=== PATIENT | male | born 1995 | race Caucasian/White ===

== ENCOUNTER 2018-01-01 10:39 | Emergency (ER) | payer OTHER ==
[2018-01-01 10:46] VITALS: BP 109/83
[2018-01-01] MEDS ORDERED: LIDOCAINE PATCH 5% TOP STA (11:24)
--- NOTE | 2018-01-01 11:34 | ED Physician Documentation ---
History of Present Illness - Stated complaint Stated Complaint: BACK INJ - Chief complaint Chief Complaint: Back Pain - Additonal information Additional information: hx from pt healthy 22 male works at [employer] was lifting a heavy bucket, hoisted onto his knee, twisted to throw it over his shoulder and strained his right low back occurred a few days ago getting better - still not able to safely lift heavy items work needs a note to be off or limited no numbness weakness incont Review of Systems Constitutional: denies: Fever GI: denies: Abdominal Pain : denies: Incontinent Musculoskeletal: reports: Back pain Neurologic: denies: Focal weakness, Numbness PD PAST MEDICAL HISTORY - Past Medical History Endocrine/Autoimmune: None - Past Surgical History Past Surgical History: No - Present Medications Home Medications: Ambulatory Orders Medication Instructions Recorded Confirmed Ibuprofen [Motrin] 400 mg PO Q6H PRN #30 tablet 01/01/18 Lidocaine Patch 5% [Lidoderm Patch] 1 each TOP DAILY PRN #10 patch 01/01/18 - Allergies Allergies/Adverse Reactions: Allergies Allergy/AdvReac Type Severity Reaction Status Date / Time No Known Drug Allergies Allergy Verified 01/01/18 10:45 - Social History Does the pt smoke?: No Smoking Status: Never smoker Does the pt drink ETOH?: No Does the pt have substance abuse?: No - Immunizations Immunizations are current?: Yes - POLST Patient has POLST: No PD ED PE NORMAL - Vitals Vital signs reviewed: Yes - Cardiac Cardiac: RRR - Respiratory Respiratory: No respiratory distress, Clear bilaterally - Abdomen Abdomen: Soft, Non tender - Back Back: No spinal TTP, Other (right soft tissue TTP, limited ROM fernando flexion) - Derm Derm: Normal color - Extremities Extremities: Other (hip flexion knee ext foot dorsi plantar and great toe ext 5/ 5 no clonus, patellar DTR 3/4 erendira, neg SLR, denies saddle anesthesia) Results - Vitals Vitals: Vital Signs - 24 hr 01/01/18 10:43 Temperature 36.1 C L Heart Rate 53 L Respiratory 16 Rate Blood Pressure 109/83 H O2 Saturation 100 Oxygen O2 Source Room air Departure - Departure Disposition: 01 Home, Self Care Clinical Impression: Low back sprain Qualifiers: Encounter type: initial encounter Qualified Code(s): S33.9XXA - Sprain of unspecified parts of lumbar spine and pelvis, initial encounter Condition: Good Instructions: ED Sprain Strain Lumbar Prescriptions: Ibuprofen [Motrin] 400 mg PO Q6H PRN #30 tablet PRN Reason: Pain Lidocaine Patch 5% [Lidoderm Patch] 1 each TOP DAILY PRN #10 patch PRN Reason: Pain Forms: Activity restrictions
== END 2018-01-01 11:39 | disposition home or self-care (01) ==
LOC: ED 10:39
DX: S33.9XXA Sprain of unspecified parts of lumbar spine and pelvis, initial encounter (principal); X50.0XXA Overexertion from strenuous movement or load, initial encounter; Y93.89 Activity, other specified; Y92.79 Other farm location as the place of occurrence of the external cause; Y99.0 Civilian activity done for income or pay
CPT/HCPCS: 99283; A9270

== ENCOUNTER 2018-10-20 15:22 | Emergency (ER) | payer SELFPAY ==
[2018-10-20 15:31] VITALS: BP 147/88
--- NOTE | 2018-10-20 15:47 | ED Physician Documentation ---
PD HPI MALE - Stated complaint Stated Complaint: MALE - Chief complaint Chief Complaint: General - History obtained from History obtained from: Patient - History of Present Illness Timing - onset: How many days ago (2 days ago he had intercourse with persons with known HIV who is on antiviral meds with reportedly low viral load. It was unprotected intercourse and the patient penetrated the other person rectally. No reported bleeding and it was gentle intercourse, according to the patient. He is concerned however about the risk of HIV transmission. Does not feel risk of other STDs.) Timing - details: Abrupt onset Associated symptoms: No: Dysuria, Urinary frequency, Genital sore / lesion, Testiclar pain PD HPI MALE CONTRIB FACTORS: Sexually active, Homosexual, Exposed to STD (HIV) Similar symptoms before: Has not had sx before Review of Systems Constitutional: denies: Fever, Chills, Myalgias : denies: Dysuria, Frequency, Discharge PD PAST MEDICAL HISTORY - Past Medical History Endocrine/Autoimmune: None - Past Surgical History Past Surgical History: No - Present Medications Home Medications: Ambulatory Orders Medication Instructions Recorded Confirmed Azithromycin [Zithromax] 1 gm PO ONCE #1 packet 10/20/18 lamiVUDine/ZIDOVUDINE [Combivir] 1 each PO BID #56 tablet 10/20/18 - Allergies Allergies/Adverse Reactions: Allergies Allergy/AdvReac Type Severity Reaction Status Date / Time No Known Drug Allergies Allergy Verified 10/20/18 15:30 - Social History Does the pt smoke?: No Smoking Status: Never smoker Does the pt drink ETOH?: No Does the pt have substance abuse?: No - Immunizations Immunizations are current?: Yes - POLST Patient has POLST: No PD ED PE NORMAL - Vitals Vital signs reviewed: Yes - General General: Alert and oriented X 3, No acute distress, Well developed/nourished - HEENT HEENT: Pharynx benign - Neck Neck: No adenopathy - Male Male : Deferred Results - Vitals Vitals: Oxygen O2 Source Room air - Labs Labs: Laboratory Tests 10/20/18 16:15 HIV 1&2 Ag/Ab, 4th Gen NON-REACTIVE PD MEDICAL DECISION MAKING - ED course Complexity details: considered differential (low risk exposure but still of concern. Discussed with patient and shared decision to give antiviral meds. Also single dose ZIthromax for other STDs. ), d/w patient Departure - Departure Disposition: 01 Home, Self Care Clinical Impression: Exposure to HIV Condition: Stable Record reviewed to determine appropriate education?: Yes Prescriptions: Azithromycin [Zithromax] 1 gm PO ONCE #1 packet lamiVUDine/ZIDOVUDINE [Combivir] 1 each PO BID #56 tablet Comments: Use the azithromycin 1 g single dose for prevention of STDs. Use the Combivir antiviral for prevention of HIV infection due to the exposure. Recheck blood test for HIV in about a month to ensure you have not developed it. The current HIV test we did will result tomorrow. Discharge Date/Time: 10/20/18 16:41
[2018-10-21 12:51] LABS: HIV AG/AB 4TH GEN NON-REACTIVE (NON-REACTIVE)
== END 2018-10-20 16:41 | disposition home or self-care (01) ==
LOC: ED 15:22
DX: Z20.6 Contact with and (suspected) exposure to human immunodeficiency virus [HIV] (principal)
CPT/HCPCS: 36415; 87389; 99283

== ENCOUNTER 2019-06-20 20:21 | Emergency (ER) | payer OTHER ==
[2019-06-20 20:26] VITALS: BP 147/82
--- NOTE | 2019-06-20 20:29 | ED Physician Documentation ---
PD HPI MALE - Stated complaint Stated Complaint: MALE - Chief complaint Chief Complaint: Abd Pain - History obtained from History obtained from: Patient - History of Present Illness Timing - onset: How many weeks ago (2) Timing - duration: Weeks Timing - details: Gradual onset, Intermittant, Waxing and waning Recently seen: Not recently seen - Additional information Additional information: has had hemorrhoid for 2 weeks, gradually worsening in frequency and intensity of pain associated with the hemorrhoid. inadequate improvement with preparation H and wipes. Review of Systems Constitutional: reports: Reviewed and negative GI: reports: Reviewed and negative PD PAST MEDICAL HISTORY - Past Medical History Cardiovascular: None Respiratory: None Neuro: None Endocrine/Autoimmune: None GI: None : None HEENT: None Psych: None Musculoskeletal: None - Past Surgical History Past Surgical History: No - Present Medications Home Medications: Ambulatory Orders Medication Instructions Recorded Confirmed Azithromycin [Zithromax] 1 gm PO ONCE #1 packet 10/20/18 lamiVUDine/ZIDOVUDINE [Combivir] 1 each PO BID #56 tablet 10/20/18 Clindamycin HCl [Clindamycin 300MG 300 mg PO Q6H #19 capsule 06/20/19 CAP] Hydrocortisone/Pramoxine 1 applic RC TID #1 foam 06/20/19 [Proctofoam-Hc Foam] - Allergies Allergies/Adverse Reactions: Allergies Allergy/AdvReac Type Severity Reaction Status Date / Time No Known Drug Allergies Allergy Verified 06/20/19 20:26 - Social History Does the pt smoke?: No Smoking Status: Never smoker Does the pt drink ETOH?: No Does the pt have substance abuse?: No - Immunizations Immunizations are current?: Yes - POLST Patient has POLST: No PD ED PE NORMAL - Vitals Vital signs reviewed: Yes - General General: Alert and oriented X 3, No acute distress, Well developed/nourished PD ED PE EXPANDED - Rectal Rectal: Normal Tone, Leak Detector present, Other (No evidence of hemorrhoids; there is trace tenderness to palpation without swelling or erythema at anal verge). No: Fissure Results - Vitals Vitals: Oxygen O2 Source Room air PD MEDICAL DECISION MAKING - ED course Complexity details: considered differential, d/w patient ED course: no visible hemorrhoid at this time; might have hemorrhoid that has reduced spontaneously or an internal hemorrhoid that was prolapsed and similarly reduced without manual manipulation. no evidence of fissure nor abscess, but will give short course of antibiotic due to mild TTP at anal verge. Departure - Departure Disposition: 01 Home, Self Care Clinical Impression: Acute hemorrhoid Condition: Good Instructions: ED Hemorrhoids Follow-Up: Nayely Albarado ARNP, [facility] [Primary Care Provider] - Prescriptions: Clindamycin HCl [Clindamycin 300MG CAP] 300 mg PO Q6H #19 capsule Hydrocortisone/Pramoxine [Proctofoam-Hc Foam] 1 applic RC TID #1 foam Discharge Date/Time: 06/20/19 21:00
[2019-06-20] MEDS ORDERED: CLINDAMYCIN 150 MG CAPSULE PO STA (20:51)
[2019-06-20] MEDS ORDERED: IBUPROFEN 600 MG TABLET PO STA (20:51)
== END 2019-06-20 21:00 | disposition home or self-care (01) ==
LOC: ED 20:21
DX: K64.9 Unspecified hemorrhoids (principal)
CPT/HCPCS: 99282; 99283; A9270

== ENCOUNTER 2019-06-30 17:34 | Outpatient (CLI) | payer OTHER ==
[2019-07-01 15:28] LABS: HIV AG/AB 4TH GEN NON-REACTIVE (NON-REACTIVE)
== END 2019-06-30 17:35 | disposition home or self-care (01) ==
LOC: LAB 17:34
PROVIDERS: ATTEND Nurse Practitioner
DX: Z72.52 High risk homosexual behavior (principal)
CPT/HCPCS: 36415; 87389

== ENCOUNTER 2020-05-12 08:00 | Outpatient (CLI) | payer OTHER ==
[2020-05-12 21:29] LABS: TRICHOMONAS VAGINALIS DNA NEGATIVE (NEGATIVE)
== END 2020-05-12 23:59 | disposition home or self-care (01) ==
LOC: LAB.R 08:00
PROVIDERS: ATTEND Nurse Practitioner
DX: Z72.51 High risk heterosexual behavior (principal)
CPT/HCPCS: 87491; 87591; 87661

== ENCOUNTER 2020-09-12 17:38 | Emergency (ER) | payer OTHER ==
[2020-09-12] MEDS ORDERED: BUFFERED LIDOCAINE 10 ML SYRINGE SUBQ STA (17:47)
--- NOTE | 2020-09-12 17:48 | ED Physician Documentation ---
PD HPI WOUND RECHECK - Stated complaint Stated Complaint: MALE - Histroy obtained from History obtained from: Patient (Otherwise healthy 24-year-old gentleman complains of rectal pain for the last 5 days. No discharge. Feels like a prior hemorrhoid he had but worse. No trouble with bowel movements.) Review of Systems Constitutional: reports: Reviewed and negative Eyes: reports: Reviewed and negative Ears: reports: Reviewed and negative PD PAST MEDICAL HISTORY - Past Medical History Cardiovascular: None Respiratory: None Neuro: None Endocrine/Autoimmune: None GI: None : None HEENT: None Psych: None Musculoskeletal: None - Past Surgical History Past Surgical History: No - Present Medications Home Medications: Ambulatory Orders Medication Instructions Recorded Confirmed Amox/Clav 875/125 [Augmentin] 1 each PO Q12H #14 tablet 09/12/20 Dextroamphetamine/Amphetamine 25 mg PO DAILY 09/12/20 09/12/20 [Adderall Xr 25 mg Capsule] Venlafaxine HCl [Venlafaxine HCl 150 mg PO DAILY 09/12/20 09/12/20 ER] - Allergies Allergies/Adverse Reactions: Allergies Allergy/AdvReac Type Severity Reaction Status Date / Time sertraline [From Zoloft] Allergy Rash Verified 07/07/20 09:06 - Social History Does the pt smoke?: No Smoking Status: Never smoker Does the pt drink ETOH?: No Does the pt have substance abuse?: No - Immunizations Immunizations are current?: Yes - POLST Patient has POLST: No PD ED PE NORMAL - Vitals Vital signs reviewed: Yes - General General: Alert and oriented X 3, No acute distress - Rectal Rectal: Other (Small right sided perianal abscess about 2 cm to the right and inferior of the anal verge) - Neuro Neuro: Alert and oriented X 3, Normal speech Results - Vitals Vitals: Vital Signs - 24 hr 09/12/20 17:40 Temperature 37 C Heart Rate 103 H Respiratory 18 Rate Blood Pressure 134/97 H O2 Saturation 97 Oxygen O2 Source Room air Procedures - Abscess I&D (location) Perianal Preparation: Betadine, Lidocaine 1% Incision: Incised with scalpel, Purulent drainage Other: Pt tolerated well, Dressing applied, Antibiotic prescribed Departure - Departure Disposition: 01 Home, Self Care Clinical Impression: Perianal abscess Condition: Good Record reviewed to determine appropriate education?: Yes Instructions: Perianal Abscess Prescriptions: Amox/Clav 875/125 [Augmentin] 1 each PO Q12H #14 tablet Comments: Follow-up with your doctor in 2 days as scheduled for wound check. Return for new or worsening symptoms.
[2020-09-12 17:54] VITALS: BP 134/97
[2020-09-12] MEDS ORDERED: AMOX/CLAV 875 MG/125 MG TABLET PO STA (18:00)
[2020-09-12] MEDS ORDERED: HYDROcod/ACET 5/325 Prepack 4 PO STA (18:00)
== END 2020-09-12 18:10 | disposition home or self-care (01) ==
LOC: ED 17:38
DX: K61.0 Anal abscess (principal)
CPT/HCPCS: 46050; 99282; 99283; A9270

== ENCOUNTER 2020-12-15 11:45 | Emergency (ER) | payer SELFPAY ==
[2020-12-15 12:41] LABS: BILIRUBIN,URINE NEGATIVE (NEGATIVE); GLUCOSE, URINE (UA) NEGATIVE (NEGATIVE); KETONES,URINE (UA) NEGATIVE (NEGATIVE); LEUKOCYTE ESTERASE, URINE NEGATIVE (NEGATIVE); MUDS CUTOFF CONCENTRATIONS CUTOFF CONC BELOW:; NITRITE,URINE NEGATIVE (NEGATIVE); OCCULT BLOOD,URINE NEGATIVE (NEGATIVE); PROTEIN,URINE NEGATIVE (NEGATIVE); UROBILINOGEN,URINE 0.2 (NORMAL) E.U./dL (NORMAL)
[2020-12-15 12:42] LABS: CLARITY,URINE CLEAR (CLEAR)
[2020-12-15] MEDS ORDERED: TETANUS/DIPHTHERIA/PERTUSSIS 0.5 ML SYRINGE IM ONE (12:43)
--- NOTE | 2020-12-15 12:43 | ED Physician Documentation ---
PD HPI MHE - Stated complaint Stated Complaint: SI - Chief complaint Chief Complaint: MHE - History obtained from History obtained from: Patient - Additional information Additional information: 25-year-old gentleman with history of depression. Has been on meds in the past but is not currently. He has suicidal ideation and today started cutting his right thigh, and was worried that he might go too far. He is actively suicidal and that is his plan. No general health issues. Review of Systems Ten Systems: 10 systems reviewed and negative Constitutional: reports: Reviewed and negative Cardiac: reports: Reviewed and negative Respiratory: reports: Reviewed and negative PD PAST MEDICAL HISTORY - Past Medical History Cardiovascular: None Respiratory: None Neuro: None Endocrine/Autoimmune: None GI: None : None HEENT: None Psych: None Musculoskeletal: None - Past Surgical History Past Surgical History: No - Present Medications Home Medications: Ambulatory Orders Medication Instructions Recorded Confirmed No Known Home Medications 12/15/20 12/15/20 - Allergies Allergies/Adverse Reactions: Allergies Allergy/AdvReac Type Severity Reaction Status Date / Time sertraline [From Zoloft] Allergy Rash Verified 12/15/20 11:53 - Social History Does the pt smoke?: No Smoking Status: Never smoker Does the pt drink ETOH?: No Does the pt have substance abuse?: No - Immunizations Immunizations are current?: Yes - POLST Patient has POLST: No PD ED PE NORMAL - Vitals Vital signs reviewed: Yes - General General: Alert and oriented X 3, No acute distress - HEENT HEENT: PERRL, EOMI - Neck Neck: Supple, no meningeal sign, No bony TTP - Cardiac Cardiac: RRR, No murmur - Respiratory Respiratory: No respiratory distress, Clear bilaterally - Abdomen Abdomen: Normal bowel sounds, Soft, Non tender - Back Back: No CVA TTP, No spinal TTP - Derm Derm: Normal color, Warm and dry - Extremities Extremities: Other (Multiple linear shallow abrasions on the anterior right thigh from cutting himself. Note that tetanus is not up-to-date.) - Neuro Neuro: Alert and oriented X 3, Normal speech - Psych Psych: Normal mood, Normal affect Results - Vitals Vitals: Vital Signs - 24 hr 12/15/20 11:53 Temperature 37.2 C Heart Rate 74 Respiratory 19 Rate Blood Pressure 157/95 H O2 Saturation 100 Oxygen O2 Source Room air - Labs Labs: Laboratory Tests 12/15/20 12/15/20 12/15/20 11:59 12:40 12:40 WBC 8.0 RBC 5.37 Hgb 16.8 Hct 47.5 MCV 88.5 MCH 31.3 H MCHC 35.4 RDW 11.8 L Plt Count 276 MPV 9.8 Neut # (Auto) 4.8 Lymph # (Auto) 2.6 Barren # (Auto) 0.5 Eos # (Auto) 0.0 Baso # (Auto) 0.1 Absolute Nucleated RBC 0.00 Nucleated RBC % 0.0 Sodium 142 Potassium 3.7 Chloride 102 Carbon Dioxide 27 Anion Gap 13.0 BUN 10 Creatinine 1.0 Estimated GFR (MDRD) 90 Glucose 82 Calcium 10.0 Total Bilirubin 1.3 H AST 22 ALT 25 Alkaline Phosphatase 39 L Total Protein 8.3 H Albumin 4.8 Globulin 3.5 Albumin/Globulin Ratio 1.4 Lipase 28 TSH Urine Color YELLOW Urine Clarity CLEAR Urine pH 7.0 Ur Specific [place] 1.010 Urine Protein NEGATIVE Urine Glucose (UA) NEGATIVE Urine Ketones NEGATIVE Urine Occult Blood NEGATIVE Urine Nitrite NEGATIVE Urine Bilirubin NEGATIVE Urine Urobilinogen 0.2 (NORMAL) Ur Leukocyte Esterase NEGATIVE Ur Microscopic Review NOT INDICATED Urine Culture Comments NOT INDICATED Nasal Adenovirus (PCR) Nasal B. parapertussis DNA (PCR) Nasal Coronavir 229E PCR Nasal Coronavir HKU1 PCR Nasal Coronavir NL63 PCR Nasal Coronavir OC43 PCR Nasal Enterovir/Rhinovir PCR Nasal Influenza B PCR Nasal Influenza A PCR Nasal Parainfluen 1 PCR Nasal Parainfluen 2 PCR Nasal Parainfluen 3 PCR Nasal Parainfluen 4 PCR Nasal RSV (PCR) Nasal B.pertussis DNA PCR Nasal C.pneumoniae (PCR) [place] Human Metapneumo PCR Nasal M.pneumoniae (PCR) Nasal SARS-CoV-2 (PCR) Salicylates < 6.0 Urine Opiates Screen NEGATIVE Ur Oxycodone Screen NEGATIVE Urine Methadone Screen NEGATIVE Ur Propoxyphene Screen NEGATIVE Acetaminophen < 10 L Ur Barbiturates Screen NEGATIVE Ur Tricyclics Screen NEGATIVE Ur Phencyclidine Scrn NEGATIVE Ur Amphetamine Screen NEGATIVE U Methamphetamines Scrn NEGATIVE U Benzodiazepines Scrn NEGATIVE Urine Cocaine Screen NEGATIVE U Cannabinoids Screen POSITIVE H Ethyl Alcohol < 5.0 12/15/20 12/15/20 12:40 12:47 WBC RBC Hgb Hct MCV MCH MCHC RDW Plt Count MPV Neut # (Auto) Lymph # (Auto) Barren # (Auto) Eos # (Auto) Baso # (Auto) Absolute Nucleated RBC Nucleated RBC % Sodium Potassium Chloride Carbon Dioxide Anion Gap BUN Creatinine Estimated GFR (MDRD) Glucose Calcium Total Bilirubin AST ALT Alkaline Phosphatase Total Protein Albumin Globulin Albumin/Globulin Ratio Lipase TSH 0.78 Urine Color Urine Clarity Urine pH Ur Specific [place] Urine Protein Urine Glucose (UA) Urine Ketones Urine Occult Blood Urine Nitrite Urine Bilirubin Urine Urobilinogen Ur Leukocyte Esterase Ur Microscopic Review Urine Culture Comments Nasal Adenovirus (PCR) NOT DETECTED Nasal B. parapertussis DNA (PCR) NOT DETECTED Nasal Coronavir 229E PCR NOT DETECTED Nasal Coronavir HKU1 PCR NOT DETECTED Nasal Coronavir NL63 PCR NOT DETECTED Nasal Coronavir OC43 PCR NOT DETECTED Nasal Enterovir/Rhinovir PCR NOT DETECTED Nasal Influenza B PCR NOT DETECTED Nasal Influenza A PCR NOT DETECTED Nasal Parainfluen 1 PCR NOT DETECTED Nasal Parainfluen 2 PCR NOT DETECTED Nasal Parainfluen 3 PCR NOT DETECTED Nasal Parainfluen 4 PCR NOT DETECTED Nasal RSV (PCR) NOT DETECTED Nasal B.pertussis DNA PCR NOT DETECTED Nasal C.pneumoniae (PCR) NOT DETECTED [place] Human Metapneumo PCR NOT DETECTED Nasal M.pneumoniae (PCR) NOT DETECTED Nasal SARS-CoV-2 (PCR) NOT DETECTED Salicylates Urine Opiates Screen Ur Oxycodone Screen Urine Methadone Screen Ur Propoxyphene Screen Acetaminophen Ur Barbiturates Screen Ur Tricyclics Screen Ur Phencyclidine Scrn Ur Amphetamine Screen U Methamphetamines Scrn U Benzodiazepines Scrn Urine Cocaine Screen U Cannabinoids Screen Ethyl Alcohol PD MEDICAL DECISION MAKING - ED course ED course: 25 year-old gentleman presents for voluntary psychiatric stabilization. No contraindication to medical clearance and was seen by social media analyst and a bed was arranged at [facility] under the care of John Bentley NP. He is stable for transport and cobras were completed. Departure - Departure Disposition: 65 Psych Hosp/Unit DC/Xfer Clinical Impression: Depression Qualifiers: Depression Type: major depressive disorder Major depression recurrence: recurrent Active/Remission status: currently active Major depression episode severity: severe Psychotic features: without psychotic features Qualified Co de(s): F33.2 - Major depressive disorder, recurrent severe without psychotic features
[2020-12-15 12:45] LABS: BASOPHILS # (AUTO) 0.1 10^3/uL (0.0-0.1); BASOPHILS % (AUTO) 0.6 %; EOSINOPHILS % (AUTO) 0.5 %; HGB - HEMOGLOBIN 16.8 g/dL (14.0-18.0); LYMPHOCYTES # (AUTO) 2.6 10^3/uL (1.5-3.5); LYMPHOCYTES % (AUTO) 31.8 %; MEAN CORPUSCULAR HEMOGLOBIN 31.3 pg (27.0-31.0); MEAN CORPUSCULAR HGB CONC 35.4 g/dL (32.0-36.0); MEAN CORPUSCULAR VOLUME 88.5 fL (80.0-94.0); MEAN PLATELET VOLUME 9.8 fL (7.4-11.4); MONOCYTES # (AUTO) 0.5 10^3/uL (0.0-1.0); MONOCYTES % (AUTO) 6.6 %; NEUTROPHILS # (AUTO) 4.8 10^3/uL (1.5-6.6); NEUTROPHILS % (AUTO) 60.4 %; PLT - PLATELET COUNT 276 10^3/uL (130-450); RED BLOOD COUNT 5.37 10^6/uL (4.70-6.10); RED CELL DISTRIBUTION WIDTH 11.8 % (12.0-15.0)
[2020-12-15 13:02] LABS: AMPHETAMINE SCREEN,URINE NEGATIVE (NEGATIVE); BENZODIAZEPINES SCREEN, URINE NEGATIVE (NEGATIVE); COCAINE SCREEN URINE NEGATIVE (NEGATIVE); METHADONE SCREEN, URINE NEGATIVE (NEGATIVE); METHAMPHETAMINES SCREEN, URINE NEGATIVE (NEGATIVE); OPIATE SCREEN, URINE NEGATIVE (NEGATIVE); OXYCODONE SCREEN, URINE NEGATIVE (NEGATIVE); PROPOXYPHENE SCREEN, URINE NEGATIVE (NEGATIVE); TRICYCLIC ANTIDEPRESSANT,URINE NEGATIVE (NEGATIVE)
[2020-12-15 13:03] LABS: ACETAMINOPHEN < 10 ug/mL (10-30); ALBUMIN 4.8 g/dL (3.2-5.5); ALBUMIN/GLOBULIN RATIO 1.4 (1.0-2.2); ALKALINE PHOSPHATASE 39 IU/L (42-121); ALT ALANINE AMINOTRANSFERASE 25 IU/L (10-60); AST ASPARTATE AMINOTRANSFERASE 22 IU/L (10-42); BILIRUBIN,TOTAL 1.3 mg/dL (0.2-1.0); BUN - BLOOD UREA NITROGEN 10 mg/dL (6-20); CARBON DIOXIDE - CO2 27 mmol/L (21-32); CHLORIDE 102 mmol/L (101-111); GLUCOSE 82 mg/dL (70-100); LIPASE 28 U/L (22-51); SALICYLATE < 6.0 mg/dL; TOTAL PROTEIN 8.3 g/dL (6.7-8.2)
[2020-12-15 13:49] LABS: C. PNEUMONIAE- RESP PCR PANEL NOT DETECTED
[2020-12-15 18:34] VITALS: BP 142/86
== END 2020-12-15 18:35 ==
LOC: ED 11:45
DX: T14.91XA Suicide attempt, initial encounter (principal); X78.9XXA Intentional self-harm by unspecified sharp object, initial encounter; F33.2 Major depressive disorder, recurrent severe without psychotic features; Z23 Encounter for immunization; Z20.822 Contact with and (suspected) exposure to COVID-19
CPT/HCPCS: 0202U; 36415; 80320; 80329; 81003; 83690; 90471; 90715; 99283; 99285; 80053; 80306; 80307; 81001; 84443; 85025; 87086

== ENCOUNTER 2021-04-05 10:40 | Emergency (ER) | payer OTHER, MEDICAID ==
--- NOTE | 2021-04-05 11:24 | ED Physician Documentation ---
PD HPI ABD PAIN - Stated complaint Stated Complaint: ABD PX - Chief complaint Chief Complaint: Abd Pain - History obtained from History obtained from: Patient - Additional information Additional information: Healthy 25-year-old gentleman has had 2 days of lower abdominal pain. Thought it was related to lifting at work but has mild pain even when at rest but definitely gets worse with lifting or motion. Mild constipation. No nausea or fevers. No history of abdominal surgeries. Review of Systems Ten Systems: 10 systems reviewed and negative Constitutional: denies: Fever, Chills Cardiac: reports: Reviewed and negative Respiratory: reports: Reviewed and negative PD PAST MEDICAL HISTORY - Past Medical History Past Medical History: Yes Cardiovascular: None Respiratory: None Neuro: None Endocrine/Autoimmune: None GI: None : None HEENT: None Psych: None Musculoskeletal: None - Past Surgical History Past Surgical History: No - Present Medications Home Medications: Ambulatory Orders Medication Instructions Recorded Confirmed No Known Home Medications 12/15/20 12/15/20 - Allergies Allergies/Adverse Reactions: Allergies Allergy/AdvReac Type Severity Reaction Status Date / Time sertraline [From Zoloft] Allergy Rash Verified 04/05/21 10:51 - Social History Does the pt smoke?: No Smoking Status: Never smoker Does the pt drink ETOH?: No Does the pt have substance abuse?: No - Immunizations Immunizations are current?: Yes - POLST Patient has POLST: No PD ED PE NORMAL - Vitals Vital signs reviewed: Yes - General General: Alert and oriented X 3, No acute distress - HEENT HEENT: PERRL, EOMI - Neck Neck: Supple, no meningeal sign, No bony TTP - Cardiac Cardiac: RRR, No murmur - Respiratory Respiratory: No respiratory distress, Clear bilaterally - Abdomen Abdomen: Other (Focal tenderness in the right lower quadrant which I would call mild, no surgical signs, negative Rovsing's.) - Back Back: No CVA TTP, No spinal TTP - Derm Derm: Normal color, Warm and dry - Extremities Extremities: No edema, No calf tenderness / cord - Neuro Neuro: Alert and oriented X 3, Normal speech Results - Vitals Vitals: Vital Signs - 24 hr 04/05/21 04/05/21 10:47 12:58 Temperature 36.5 C 36.5 C Heart Rate 88 86 Respiratory 14 14 Rate Blood Pressure 145/94 H 138/88 H O2 Saturation 100 100 Oxygen O2 Source Room air - Labs Labs: Laboratory Tests 04/05/21 04/05/21 11:27 11:27 WBC 6.4 RBC 5.52 Hgb 17.4 Hct 50.0 MCV 90.6 MCH 31.5 H MCHC 34.8 RDW 11.4 L Plt Count 236 MPV 10.2 Neut # (Auto) 4.2 Lymph # (Auto) 1.8 [place] # (Auto) 0.3 Eos # (Auto) 0.1 Baso # (Auto) 0.1 Absolute Nucleated RBC 0.00 Nucleated RBC % 0.0 Sodium 137 Potassium 3.9 Chloride 99 L Carbon Dioxide 29 Anion Gap 9.0 BUN 7 Creatinine 1.0 Estimated GFR (MDRD) 90 Glucose 89 Calcium 9.8 PD MEDICAL DECISION MAKING - ED course ED course: 25-year-old gentleman presents with what sounds like musculoskeletal abdominal pain, but does have mild focal tenderness in the right lower quadrant therefore work-up was done without pertinent positive findings except for an incidental appendicolith which was discussed with patient. No evidence of appendicitis. Departure - Departure Disposition: 01 Home, Self Care Clinical Impression: Appendicolith Abdominal pain Qualifiers: Abdominal location: right lower quadrant Qualified Code(s): R10.31 - Right lower quadrant pain Condition: Good Record reviewed to determine appropriate education?: Yes Instructions: ED Abdominal Pain Appendx Poss Comments: As discussed, no evidence of serious etiologies, that said you do have what is called an appendicolith which makes the potential for having appendicitis in your lifetime much higher. Return for new or worsening symptoms or if not better in the next day. Forms: Activity restrictions Discharge Date/Time: 04/05/21 12:58
[2021-04-05 11:33] LABS: BASOPHILS # (AUTO) 0.1 10^3/uL (0.0-0.1); BASOPHILS % (AUTO) 1.1 %; EOSINOPHILS # (AUTO) 0.1 10^3/uL (0.0-0.7); EOSINOPHILS % (AUTO) 1.1 %; HGB - HEMOGLOBIN 17.4 g/dL (14.0-18.0); LYMPHOCYTES # (AUTO) 1.8 10^3/uL (1.5-3.5); LYMPHOCYTES % (AUTO) 27.7 %; MEAN CORPUSCULAR HEMOGLOBIN 31.5 pg (27.0-31.0); MEAN CORPUSCULAR HGB CONC 34.8 g/dL (32.0-36.0); MEAN CORPUSCULAR VOLUME 90.6 fL (80.0-94.0); MEAN PLATELET VOLUME 10.2 fL (7.4-11.4); MONOCYTES # (AUTO) 0.3 10^3/uL (0.0-1.0); MONOCYTES % (AUTO) 4.8 %; NEUTROPHILS # (AUTO) 4.2 10^3/uL (1.5-6.6); NEUTROPHILS % (AUTO) 65.1 %; PLT - PLATELET COUNT 236 10^3/uL (130-450); RED BLOOD COUNT 5.52 10^6/uL (4.70-6.10); RED CELL DISTRIBUTION WIDTH 11.4 % (12.0-15.0); WHITE BLOOD COUNT 6.4 x10^3/uL (4.8-10.8)
[2021-04-05 11:58] LABS: CALCIUM 9.8 mg/dL (8.5-10.3); POTASSIUM 3.9 mmol/L (3.5-5.0)
[2021-04-05] MEDS ORDERED: IOVERSOL 320 100 ML VIAL IVP ONE ×2 (12:02→14:38)
--- NOTE | 2021-04-05 12:37 | CT Report ---
PROCEDURE: Abdomen/Pelvis W INDICATIONS: Right lower quadrant abdominal pain CONTRAST: IV CONTRAST: Optiray 320 ml: 100 PO CONTRAST: *NO PO CONTRAST TECHNIQUE: After the administration of intravenous contrast, 5 mm thick sections acquired from the diaphragms to the symphysis. 5 mm thick coronal and sagittal reformats were acquired. For radiation dose reducti on, the following was used: automated exposure control, adjustment of mA and/or kV according to pat ent size. COMPARISON: 10/30/2013 CT abdomen and pelvis FINDINGS: Image quality: Excellent. ABDOMEN: Lung bases: Lung bases are clear. Heart size is normal. Solid organs: Liver and spleen are normal in size and enhancement. Gallbladder is normal. Biliary system is non dilated. Pancreas enhances normally. No adrenal nodules. Kidneys demonstrate normal size and enhancement, without hydronephrosis. Peritoneum and bowel: Normal caliber appendix without wall thickening or adjacent fat stranding. Ther e is a hyperdense appendicolith at the base of the appendix (series 3 image 42). Remainder of the bow el is unremarkable. No pericolonic or mesenteric inflammatory changes. Nodes and vessels: No retroperitoneal or mesenteric adenopathy by size criteria. Aorta and inferior vena cava are normal in size. Miscellaneous: No ventral hernias. PELVIS: Genitourinary: Bladder wall thickness is normal. Miscellaneous: No inguinal hernias or adenopathy. Bones: No suspicious bony lesions. No vertebral body compression fractures. IMPRESSION: No acute finding to explain abdominal pain. Appendicolith without findings of appendicitis. Reviewed by: Junito Tapia MD on 04/05/2021 12:36 PM PDT Approved by: Junito Tapia MD on 04/05/2021 12:36 PM PDT Station ID: [id number]
[2021-04-05 12:59] VITALS: BP 138/88
== END 2021-04-05 12:58 | disposition home or self-care (01) ==
LOC: ED 10:40
DX: K38.1 Appendicular concretions (principal); R10.30 Lower abdominal pain, unspecified; X50.0XXA Overexertion from strenuous movement or load, initial encounter; Y99.0 Civilian activity done for income or pay
CPT/HCPCS: 1040M; 36415; 74177; 80048; 85025; 99282; 99284; Q9967

== ENCOUNTER 2021-04-09 04:13 | Emergency (ER) | payer MEDICAID ==
[2021-04-09] MEDS ORDERED: DEXAMETHASONE 10 MG/ML VIAL PO STA (05:12)
[2021-04-09] MEDS ORDERED: CHERRY SYRUP 10 ML UDC PO ONE (05:12)
[2021-04-09] MEDS ORDERED: KETOROLAC 60 MG/2 ML VIAL IM STA (05:12)
--- NOTE | 2021-04-09 05:18 | ED Physician Documentation ---
PD HPI CHEST PAIN - Stated complaint Stated Complaint: ABD PX - Chief complaint Chief Complaint: Abd Pain - History obtained from History obtained from: Patient - History of Present Illness Timing - onset: How many days ago (6) Timing - onset during: Exertion Timing - duration: Days (6) Timing - details: Gradual onset, Still present Quality: Sharp, Pain Location: Right chest Radiation: Abdominal Improved by: Rest Worsened by: Inspiration, Palpation Associated symptoms: No: Shortness of air, Diaphoresis, Nausea, Vomiting, Feeling faint / dizzy, General Weakness, Palpitations, Cough Similar symptoms before: Has not had sx before Recently seen: Emergency Dept - Additional information Additional information: 25-year-old male indicates that he has had some pain in his right side for the past 6 days and indicates that tonight he was not able to sleep secondary to this pain. He has periodic increase in pain and he describes the pain is in the chest wall and the lower aspect of the chest on the right side. There is one specific area that is tender. He denies any nausea vomiting diarrhea or constipation. He denies any loss of appetite. He denies any fever. He was seen in the emergency department [address] scan of the abdomen and pelvis done had blood work done all with unremarkable findings with the exception of an appendicolith. Because of this the patient is come back with persistence of his symptoms. Patient works at [employer] and states that he has been doing quite a bit of working and that the lines have become heavier as the season goes on. He feels it would be easy for him to strain himself. Review of Systems Constitutional: denies: Fever Eyes: denies: Decreased vision Ears: denies: Ear pain Nose: denies: Congestion Throat: denies: Sore throat Cardiac: reports: Chest pain / pressure. denies: Palpitations, Pedal edema Respiratory: denies: Dyspnea, Cough, Hemoptysis GI: reports: Abdominal Pain. denies: Abdominal Swelling, Nausea, Vomiting : denies: Dysuria, Frequency Skin: denies: Rash Musculoskeletal: denies: Neck pain, Back pain, Extremity pain PD PAST MEDICAL HISTORY - Past Medical History Past Medical History: Yes Cardiovascular: None Respiratory: None Neuro: None Endocrine/Autoimmune: None GI: None : None HEENT: None Psych: Depression, Anxiety Musculoskeletal: None - Past Surgical History Past Surgical History: No - Present Medications Home Medications: Ambulatory Orders Medication Instructions Recorded Confirmed Venlafaxine HCl [Effexor Xr] 150 mg PO DAILY 04/09/21 04/09/21 traMADol [Ultram] 50 - 100 mg PO Q6H PRN #20 tablet 04/09/21 - Allergies Allergies/Adverse Reactions: Allergies Allergy/AdvReac Type Severity Reaction Status Date / Time sertraline [From Zoloft] Allergy Rash Verified 04/09/21 04:19 - Social History Does the pt smoke?: No Smoking Status: Never smoker Does the pt drink ETOH?: No Does the pt have substance abuse?: No - Immunizations Immunizations are current?: Yes - POLST Patient has POLST: No PD ED PE NORMAL - Vitals Vital signs reviewed: Yes (tachycardic and hypertensive ) - General General: Alert and oriented X 3, No acute distress - HEENT HEENT: Atraumatic, PERRL, EOMI - Neck Neck: Supple, no meningeal sign, No bony TTP - Cardiac Cardiac: No murmur, Other (tachy to 110) - Respiratory Respiratory: No respiratory distress, Clear bilaterally, Other (There is specific point tenderness to the chest wall on the right side to one rib litzy- lateral. No pain under the ribs. ) - Abdomen Abdomen: Normal bowel sounds, Soft, Non tender, Non distended, No organomegaly, Other (no tenderness to deep palpation of the right lower quadrant. ) - Back Back: No CVA TTP, No spinal TTP - Derm Derm: Normal color, Warm and dry, No rash - Extremities Extremities: No deformity, No edema - Neuro Neuro: Alert and oriented X 3, claims collector 2-12 intact, No motor deficit, No sensory deficit, Normal speech Eye Opening: Spontaneous Motor: Obeys Commands Verbal: Oriented GCS Score: 15 - Psych Psych: Normal mood, Normal affect Results - Vitals Vitals: Vital Signs - 24 hr 04/09/21 04/09/21 04:17 05:47 Temperature 37.1 C 36.6 C Heart Rate 113 H 102 H Respiratory 16 14 Rate Blood Pressure 143/100 H 135/91 H O2 Saturation 100 100 Oxygen O2 Source Room air - Rads (name of study) chest Radiology: Prelim report reviewed (Impression: No acute findings.), EMP read indepedently, See rad report PD MEDICAL DECISION MAKING - ED course Complexity details: reviewed old records, reviewed results, re-evaluated patient, considered differential, d/w patient ED course: 25-year-old male with pain to the right chest wall has a negative appearing chest x-ray he has had prior evaluation of his abdomen with CT demonstrating a an appendicolith without appendicitis. The patient is continuing to eat and on exam today has no pain in the right lower quadrant. He does work at [employer] and has had overuse injuries previously he believes this is similar to that. He is administered dexamethasone and Toradol with improvement in his pain will place him on a short course of pain medication and I have given him a note for work. Departure - Departure Disposition: 01 Home, Self Care Clinical Impression: Acute chest wall pain Condition: Stable Instructions: ED Strain Chest Wall Follow-Up: [facility] [Provider Group] Prescriptions: traMADol [Ultram] 50 - 100 mg PO Q6H PRN #20 tablet PRN Reason: Pain Forms: Activity restrictions Discharge Date/Time: 04/09/21 06:10
[2021-04-09 06:12] VITALS: BP 135/91
--- NOTE | 2021-04-09 06:59 | XRAY Report ---
PROCEDURE: Chest 2 View X-Ray INDICATIONS: right lower chest wall tenderness TECHNIQUE: 2 view(s) of the chest. COMPARISON: Correlation is made with the overlapping portions of abdomen pelvis CT, 04/05/2021. FINDINGS: Surgical changes and devices: None. Lungs and pleura: No pleural effusions or pneumothorax. Lungs are clear. Mediastinum: Mediastinal contours are normal. Heart size is normal. Bones and chest wall: A BB marker is placed at the area of clinical concern. No focal rib abnormalit ies are seen at this site. No suspicious bony abnormalities. Soft tissues appear unremarkable. IMPRESSION: Negative plain films, without an abnormality seen at the area of clinical concern. Clear lungs, without pneumothorax. Note: No significant discrepancy from the preliminary report. Reviewed by: Colin Kaufman MD on 04/09/2021 5:58 AM VENANCIO Approved by: Colin Kaufman MD on 04/09/2021 5:58 AM VENANCIO Station ID: [id number]
== END 2021-04-09 06:10 | disposition home or self-care (01) ==
LOC: ED 04:13
DX: R07.89 Other chest pain (principal)
CPT/HCPCS: 71046; 96372; 99283; 99284; A9270

== ENCOUNTER 2021-08-23 13:52 | Emergency (ER) | payer MEDICAID ==
[2021-08-23 14:07] VITALS: BP 144/92
--- NOTE | 2021-08-23 14:17 | ED Physician Documentation ---
PD HPI HEENT - Stated complaint Stated Complaint: NO SMELL/TASTE/COUGH - Chief complaint Chief Complaint: Heent - History obtained from History obtained from: Patient - Additional information Additional information: 25-year-old gentleman who is fully immunized against Covid has been sick for 2 days with loss of taste and smell, sore throat, body aches. There is no associated shortness of breath. He has been exposed to people with URIs, but they did not get tested for Covid. Review of Systems Constitutional: reports: Chills, Myalgias Nose: reports: Rhinorrhea / runny nose Throat: reports: Sore throat Respiratory: reports: Cough PD PAST MEDICAL HISTORY - Past Medical History Cardiovascular: None Respiratory: None Neuro: None Endocrine/Autoimmune: None GI: None : None HEENT: None Psych: None Musculoskeletal: None - Past Surgical History Past Surgical History: No - Present Medications Home Medications: Ambulatory Orders Medication Instructions Recorded Confirmed Venlafaxine HCl [Effexor Xr] 150 mg PO DAILY 04/09/21 04/09/21 traMADol [Ultram] 50 - 100 mg PO Q6H PRN #20 tablet 04/09/21 - Allergies Allergies/Adverse Reactions: Allergies Allergy/AdvReac Type Severity Reaction Status Date / Time sertraline [From Zoloft] Allergy Rash Verified 08/23/21 14:07 - Social History Does the pt smoke?: No Smoking Status: Never smoker Does the pt drink ETOH?: No Does the pt have substance abuse?: No - Immunizations Immunizations are current?: Yes - POLST Patient has POLST: No PD ED PE NORMAL - Vitals Vital signs reviewed: Yes - General General: Alert and oriented X 3, No acute distress - HEENT HEENT: Other (red op, no swelling/exudate) - Neck Neck: Supple, no meningeal sign, No bony TTP - Respiratory Respiratory: No respiratory distress, Clear bilaterally - Abdomen Abdomen: Non tender - Derm Derm: No rash - Neuro Neuro: Alert and oriented X 3, Normal speech Results - Vitals Vitals: Vital Signs - 24 hr 08/23/21 14:03 Temperature 36.0 C L Heart Rate 97 Respiratory 14 Rate Blood Pressure 144/92 H O2 Saturation 98 Oxygen O2 Source Room air PD MEDICAL DECISION MAKING - ED course ED course: 25-year-old gentleman with nonspecific viral URI, certainly could be Covid. He will be swabbed for same and discussed need for quarantine pending results. Departure - Departure Disposition: 01 Home, Self Care Clinical Impression: Viral URI Condition: Good Record reviewed to determine appropriate education?: Yes Instructions: ED Viral Syndrome Comments: You have a Covid test pending. You need to self quarantine until the result is done and negative. Do not leave your house. Do not get near anybody. The results should be done in 48 to 72 hours. We will call with a positive result, the fastest way to get a negative result for confirmation though is to go to the hospital website at [email or web address], click on the my TATE'S LIST tab and sign up for the patient portal. If any friends or family get sick and would like to have a Covid test done, but do not have signs or symptoms that would necessitate being hospitalized, we encourage testing through our coronavirus swabbing station, call [phone] to schedule an appointment. Forms: Activity restrictions
== END 2021-08-23 15:45 | disposition home or self-care (01) ==
LOC: ED 13:52
DX: J06.9 Acute upper respiratory infection, unspecified (principal)
CPT/HCPCS: 99283

== ENCOUNTER 2021-09-21 15:25 | Emergency (ER) | payer MEDICAID ==
[2021-09-21 16:00] LABS: BASOPHILS # (AUTO) 0.1 10^3/uL (0.0-0.1); BASOPHILS % (AUTO) 0.7 %; EOSINOPHILS % (AUTO) 0.2 %; HCT - HEMATOCRIT 46.3 % (42.0-52.0); HGB - HEMOGLOBIN 16.4 g/dL (14.0-18.0); LYMPHOCYTES # (AUTO) 2.1 10^3/uL (1.5-3.5); LYMPHOCYTES % (AUTO) 24.2 %; MEAN CORPUSCULAR HEMOGLOBIN 31.5 pg (27.0-31.0); MEAN CORPUSCULAR HGB CONC 35.4 g/dL (32.0-36.0); MEAN CORPUSCULAR VOLUME 88.9 fL (80.0-94.0); MEAN PLATELET VOLUME 10.1 fL (7.4-11.4); MONOCYTES # (AUTO) 0.4 10^3/uL (0.0-1.0); NEUTROPHILS # (AUTO) 6.2 10^3/uL (1.5-6.6); NEUTROPHILS % (AUTO) 69.4 %; PLT - PLATELET COUNT 213 10^3/uL (130-450); RED BLOOD COUNT 5.21 10^6/uL (4.70-6.10); RED CELL DISTRIBUTION WIDTH 11.8 % (12.0-15.0); WHITE BLOOD COUNT 8.9 x10^3/uL (4.8-10.8)
[2021-09-21 16:17] LABS: ALBUMIN 4.8 g/dL (3.2-5.5); ALBUMIN/GLOBULIN RATIO 1.4 (1.0-2.2); BILIRUBIN,TOTAL 1.4 mg/dL (0.2-1.0); CALCIUM 9.7 mg/dL (8.5-10.3); POTASSIUM 3.6 mmol/L (3.5-5.0); TOTAL PROTEIN 8.3 g/dL (6.7-8.2)
[2021-09-21] MEDS ORDERED: ONDANSETRON 4 MG/2 ML VIAL IVP STA (16:44)
[2021-09-21] MEDS ORDERED: SODIUM CHLORIDE 0.9% 1,000 ML IV STA (16:44)
[2021-09-21] MEDS ORDERED: KETOROLAC 30 MG/ML VIAL IVP STA (16:44)
[2021-09-21] MEDS ORDERED: IOVERSOL 320 100 ML VIAL IVP ONE ×2 (16:54→17:26)
--- NOTE | 2021-09-21 17:39 | CT Report ---
PROCEDURE: Abdomen/Pelvis W INDICATIONS: abd pain CONTRAST: IV CONTRAST: Optiray 320 ml: 100 PO CONTRAST: *NO PO CONTRAST TECHNIQUE: After the administration of intravenous contrast, 5 mm thick sections acquired from the diaphragms to the symphysis. 5 mm thick coronal and sagittal reformats were acquired. For radiation dose reducti on, the following was used: automated exposure control, adjustment of mA and/or kV according to pat ent size. COMPARISON: None currently available FINDINGS: Image quality: Excellent. ABDOMEN: Lung bases: Lung bases are clear. Heart size is normal. Solid organs: Liver and spleen are normal in size and enhancement. Gallbladder is contracted, unrem arkable Biliary system is non dilated. Pancreas enhances normally. No adrenal nodules. Kidneys de monstrate normal size and enhancement, without hydronephrosis. Peritoneum and bowel: Mild diffuse colonic wall thickening throughout the colon, most notably involvi ng the sigmoid and rectum and left colon. Consider infectious versus inflammatory colitis. No free fl uid or air. Normal air-containing appendix. Nodes and vessels: No retroperitoneal or mesenteric adenopathy by size criteria. Aorta and inferior vena cava are normal in size. Miscellaneous: No ventral hernias. PELVIS: Genitourinary: Bladder wall thickness is normal. Miscellaneous: No inguinal hernias or adenopathy. Bones: No suspicious bony lesions. No vertebral body compression fractures. IMPRESSION: Mild diffuse colonic wall thickening. Consider infectious versus inflammatory colitis. Reviewed by: Balta Whyte MD on 09/21/2021 5:38 PM PDT Approved by: Balta Whyte MD on 09/21/2021 5:38 PM PDT Station ID: [id number]
[2021-09-21 17:43] LABS: BILIRUBIN,URINE NEGATIVE (NEGATIVE); GLUCOSE, URINE (UA) NEGATIVE (NEGATIVE); KETONES,URINE (UA) NEGATIVE (NEGATIVE); LEUKOCYTE ESTERASE, URINE NEGATIVE (NEGATIVE); NITRITE,URINE NEGATIVE (NEGATIVE); OCCULT BLOOD,URINE NEGATIVE (NEGATIVE); PROTEIN,URINE NEGATIVE (NEGATIVE); UROBILINOGEN,URINE 0.2 (NORMAL) E.U./dL (NORMAL)
[2021-09-21 17:47] LABS: CLARITY,URINE CLEAR (CLEAR)
[2021-09-21] MEDS ORDERED: levoFLOXacin 250 MG TABLET PO STA (17:49)
[2021-09-21] MEDS ORDERED: metroNIDAZOLE 250 MG TABLET PO STA (17:49)
--- NOTE | 2021-09-21 18:38 | ED Physician Documentation ---
PD HPI ABD PAIN - Stated complaint Stated Complaint: ABD PX,HOT TO TOUCH/NAUSEA/ - Chief complaint Chief Complaint: Abd Pain - History obtained from History obtained from: Patient - Additional information Additional information: Is a 25-year-old presenting to the emergency department with lower abdominal pain. Reports pain began this morning. States similar to pain that he has felt on previous ER evaluations. Reports that the pain is cramping in nature and without radiation. Denied any associated nausea, vomiting, diarrhea or constipation. Reports last p.o. intake was a meal this afternoon. Review of Systems Ten Systems: 10 systems reviewed and negative Constitutional: denies: Fever Eyes: denies: Loss of vision Ears: denies: Loss of hearing Nose: denies: Rhinorrhea / runny nose Throat: denies: Dental pain / toothache Cardiac: denies: Chest pain / pressure GI: reports: Abdominal Pain : denies: Dysuria Skin: denies: Rash Musculoskeletal: denies: Neck pain Neurologic: denies: Generalized weakness Psychiatric: denies: Depressed PD PAST MEDICAL HISTORY - Past Medical History Past Medical History: No Cardiovascular: None Respiratory: None Neuro: None Endocrine/Autoimmune: None GI: None : None HEENT: None Psych: None Musculoskeletal: None - Past Surgical History Past Surgical History: No - Present Medications Home Medications: Ambulatory Orders Medication Instructions Recorded Confirmed Venlafaxine HCl [Effexor Xr] 75 mg PO DAILY 04/09/21 09/21/21 buPROPion HCL [Bupropion Xl] 150 mg PO DAILY 09/21/21 09/21/21 levoFLOXacin [Levofloxacin] 750 mg PO DAILY 7 Days #7 tablet 09/21/21 metroNIDAZOLE [Flagyl] 500 mg ORAL TID 7 Days #21 tab 09/21/21 traZODone [Desyrel] 50 mg PO HS PRN 09/21/21 09/21/21 - Allergies Allergies/Adverse Reactions: Allergies Allergy/AdvReac Type Severity Reaction Status Date / Time sertraline [From Zoloft] Allergy Rash Verified 09/21/21 15:37 - Social History Does the pt smoke?: No Smoking Status: Never smoker Does the pt drink ETOH?: No Does the pt have substance abuse?: No - Immunizations Immunizations are current?: Yes - POLST Patient has POLST: No PD ED PE NORMAL - General General: Alert and oriented X 3 - HEENT HEENT: Atraumatic - Neck Neck: Supple, no meningeal sign - Cardiac Cardiac: RRR - Respiratory Respiratory: No respiratory distress - Male Male : Deferred - Rectal Rectal: Deferred - Back Back: No CVA TTP PD ED PE EXPANDED - Abdomen Abdomen: Normal Bowel sounds, Tender to palpation, Suprapubic Results - Vitals Vitals: Vital Signs - 24 hr 09/21/21 09/21/21 09/21/21 15:34 16:25 18:00 Temperature 36.9 C 36.8 C Heart Rate 97 74 69 Respiratory 18 16 16 Rate Blood Pressure 150/99 H 142/90 H 122/81 H O2 Saturation 98 98 97 Oxygen O2 Source Room air - Labs Labs: Laboratory Tests 09/21/21 09/21/21 09/21/21 15:55 15:55 17:30 WBC 8.9 RBC 5.21 Hgb 16.4 Hct 46.3 MCV 88.9 MCH 31.5 H MCHC 35.4 RDW 11.8 L Plt Count 213 MPV 10.1 Neut # (Auto) 6.2 Lymph # (Auto) 2.1 Hayes # (Auto) 0.4 Eos # (Auto) 0.0 Baso # (Auto) 0.1 Absolute Nucleated RBC 0.00 Nucleated RBC % 0.0 Sodium 138 Potassium 3.6 Chloride 101 Carbon Dioxide 25 Anion Gap 12.0 BUN 12 Creatinine 1.0 Estimated GFR (MDRD) 90 Glucose 99 Calcium 9.7 Total Bilirubin 1.4 H AST 22 ALT 22 Alkaline Phosphatase 42 Total Protein 8.3 H Albumin 4.8 Globulin 3.5 Albumin/Globulin Ratio 1.4 Lipase 29 Urine Color YELLOW Urine Clarity CLEAR Urine pH 7.0 Ur Specific [place] 1.020 Urine Protein NEGATIVE Urine Glucose (UA) NEGATIVE Urine Ketones NEGATIVE Urine Occult Blood NEGATIVE Urine Nitrite NEGATIVE Urine Bilirubin NEGATIVE Urine Urobilinogen 0.2 (NORMAL) Ur Leukocyte Esterase NEGATIVE Ur Microscopic Review NOT INDICATED Urine Culture Comments NOT INDICATED PD MEDICAL DECISION MAKING - ED course Complexity details: reviewed results, d/w patient ED course: Patient presents with lower abdominal pain ongoing x1 day. Afebrile, hemodynamically stable on arrival to the emergency department. Labs obtained generally within normal limits are nonactionable. Patient given IV fluids, medication for pain, nausea. CT abdomen pelvis demonstrated some wall thickening concerning for colitis. Patient given first dose Flagyl and Levaquin here in the emergency department. Will discharge with ongoing course of Flagyl and Levaquin. Encourage careful follow-up with primary care for resolution of symptoms and possible referral to gastroenterology as needed. Otherwise clear return precautions and follow-up instructions given prior to discharge. Departure - Departure Disposition: 01 Home, Self Care Clinical Impression: Colitis Condition: Fair Instructions: Abdominal Pain Prescriptions: metroNIDAZOLE [Flagyl] 500 mg ORAL TID 7 Days #21 tab levoFLOXacin [Levofloxacin] 750 mg PO DAILY 7 Days #7 tablet Comments: Thank you for allowing us to care for you today at [facility] Your CT scan today showed some thickening to the your bowel consistent with a condition known as colitis. This is most often due to infection. I would like you to begin a short course of antibiotics. It is important that you follow-up with your primary care doctor soon as possible as you may benefit from a medical recheck. If it anytime you have any new or worsening symptoms please not hesitate to return to the emergency department.
[2021-09-21 18:44] VITALS: BP 122/85
== END 2021-09-21 18:50 | disposition home or self-care (01) ==
LOC: ED 15:25
DX: K52.9 Noninfective gastroenteritis and colitis, unspecified (principal)
CPT/HCPCS: 36415; 74177; 80053; 81003; 83690; 85025; 96374; 96375; 99283; 99284; A9270; Q9967; 81001; 87086

== ENCOUNTER 2022-03-12 11:33 | Outpatient (CLI) | payer MEDICAID ==
[2022-03-12 18:23] LABS: BASOPHILS # (AUTO) 0.1 10^3/uL (0.0-0.1); BASOPHILS % (AUTO) 0.8 %; EOSINOPHILS # (AUTO) 0.1 10^3/uL (0.0-0.7); EOSINOPHILS % (AUTO) 2.2 %; HCT - HEMATOCRIT 42.3 % (42.0-52.0); HGB - HEMOGLOBIN 14.9 g/dL (14.0-18.0); LYMPHOCYTES # (AUTO) 1.8 10^3/uL (1.5-3.5); LYMPHOCYTES % (AUTO) 28.2 %; MEAN CORPUSCULAR HGB CONC 35.2 g/dL (32.0-36.0); MEAN CORPUSCULAR VOLUME 90.8 fL (80.0-94.0); MONOCYTES # (AUTO) 0.4 10^3/uL (0.0-1.0); MONOCYTES % (AUTO) 6.1 %; NEUTROPHILS # (AUTO) 3.9 10^3/uL (1.5-6.6); NEUTROPHILS % (AUTO) 62.4 %; PLT - PLATELET COUNT 234 10^3/uL (130-450); RED BLOOD COUNT 4.66 10^6/uL (4.70-6.10); RED CELL DISTRIBUTION WIDTH 12.2 % (12.0-15.0); WHITE BLOOD COUNT 6.3 x10^3/uL (4.8-10.8)
[2022-03-12 19:05] LABS: ALBUMIN 4.2 g/dL (3.2-5.5); ALBUMIN/GLOBULIN RATIO 1.2 (1.0-2.2); BILIRUBIN,TOTAL 0.8 mg/dL (0.2-1.0); CALCIUM 9.4 mg/dL (8.5-10.3); CREATININE 0.9 mg/dL (0.6-1.2); POTASSIUM 4.7 mmol/L (3.5-5.0); TOTAL PROTEIN 7.7 g/dL (6.7-8.2)
== END 2022-03-12 11:34 | disposition home or self-care (01) ==
LOC: LAB.N 11:33
PROVIDERS: ATTEND Family Medicine
DX: F64.9 Gender identity disorder, unspecified (principal)
CPT/HCPCS: 36415; 80053; 81599; 82670; 84402; 85025